=== PATIENT | male | born 1955 | race African-American/Black ===

== ENCOUNTER 2021-05-30 02:05 | Inpatient (IN) | payer MEDICARE, MEDICAID ==
[~2021-05-30] VITALS: Ht 188 cm; Wt 77.2 kg
[2021-05-30] MEDS ORDERED: heparin 10,000 units/1 ML INJ IV PRN (02:25)
[2021-05-30] MEDS ORDERED: HYDR25TA4 PO (03:15)
[2021-05-30] MEDS ORDERED: HYDR25TA5 PO (03:15)
[2021-05-30] MEDS ORDERED: BISA5TAB10 PO (03:15)
[2021-05-30] MEDS ORDERED: CLON0.1T2 PO (03:15)
[2021-05-30] MEDS ORDERED: COLC0.6T72 PO (03:15)
[2021-05-30] MEDS ORDERED: AMLO10TA13 PO (03:15)
[2021-05-30] MEDS: heparin 25,000 UNIT/250ml bag 250 ML IV SCH ×2 (03:16→17:49)
[2021-05-30 03:18] LABS: PARTIAL THROMBOPLASTIN TIME 54 SECONDS (22-32)
--- NOTE | 2021-05-30 03:31 | NUR ---
lab called concerning pt's critical troponin of 390. dr weston is aware.
[2021-05-30] MEDS ORDERED: ondansetron/PF 4mg/2ml inj IV PRN (03:35)
[2021-05-30] MEDS ORDERED: magnesium hydroxide 30ml (MOM) UD suspension PO PRN (03:35)
[2021-05-30] MEDS ORDERED: acetaminophen 325mg tablet PO PRN (03:35)
[2021-05-30] MEDS ORDERED: mag hydrox/Alum hydrox/simeth 30ml oral suspension PO PRN (03:35)
[2021-05-30] MEDS ORDERED: potassium Cl 40MEQ/1/2NS 520ml 520 ML IV PRN ×2 (03:35)
[2021-05-30] MEDS ORDERED: potassium Cl 20 mEq SR tablet PO PRN ×2 (03:35)
[2021-05-30 03:38] LABS: ALBUMIN 3.2 G/DL (3.4-5.0); ANION GAP 12 (8-16); BLOOD UREA NITROGEN 13 MG/DL (7-18); BUN/CREATININE RATIO 10.3 (5.4-32.0); CALCIUM 7.6 MG/DL (8.5-10.1); CHLORIDE 103 MMOL/L (99-107); CREATININE 1.26 MG/DL (0.60-1.10); GLUCOSE 94 MG/DL (70-104); POTASSIUM 3.4 MMOL/L (3.5-5.1); SODIUM 141 MMOL/L (135-145); TOTAL CARBON DIOXIDE 25.6 MMOL/L (24-32); eGFR 57 ML/MIN
[2021-05-30 04:09] LABS: HEMOGLOBIN A1C 5.3 % (4.5-6.2)
[2021-05-30] MEDS: normal saline 1000ml 1,000 ML IV SCH (06:51)
[2021-05-30] MEDS ORDERED: PERFLUTREN PROTEIN-A MICROSPHR (Optison) 0.22 MG/ML 3ML VIAL IV ONE (08:00)
[2021-05-30] MEDS: K and/or MAG REPLACEMENT MC SCH ×2 (08:00→20:00)
[2021-05-30] MEDS: docusate sod 100mg capsule PO SCH ×2 (08:45→20:00)
[2021-05-30] MEDS: aspirin 325mg tablet, delayed-release (Ecotrin) PO SCH (08:45)
[2021-05-30] MEDS: atorvastatin 20mg tablet PO SCH (08:45)
[2021-05-30] MEDS: metoprolol tartrate 25mg tablet PO SCH ×2 (08:45→21:08)
[2021-05-30] MEDS: amLODIPine 5mg tablet PO SCH (08:45)
[2021-05-30 10:07] LABS: PARTIAL THROMBOPLASTIN TIME 40 SECONDS (22-32)
[2021-05-30 19:00] VITALS: BP 143/81
--- NOTE | 2021-05-30 20:06 | NUR ---
Patient in room ED 11. I have received report from Abilio NAVARRETE and had the opportunity to ask questions and assume patient care.
[2021-05-30 22:00] VITALS: BP 172/93
--- NOTE | 2021-05-30 22:02 | NUR ---
critical trop called to md Pena-trop level trending down. no new orders per MD. BRINA NAVARRETE
[2021-05-31] VITALS (14 sets, daily range): BP systolic 117–152; BP diastolic 64–85
[2021-05-31 02:14] LABS: ALANINE AMINOTRANSFERASE 47 U/L (12-78); ALBUMIN 2.9 G/DL (3.4-5.0); ALBUMIN/GLOBULIN RATIO 0.9 (1.1-1.5); ALKALINE PHOSPHATASE 69 IU/L (46-116); ANION GAP 10 (8-16); ASPARTATE AMINO TRANSFERASE 80 U/L (10-37); BILIRUBIN,TOTAL 0.5 MG/DL (0.1-1.0); BLOOD UREA NITROGEN 15 MG/DL (7-18); BUN/CREATININE RATIO 13.3 (5.4-32.0); CALCIUM 7.6 MG/DL (8.5-10.1); CHLORIDE 104 MMOL/L (99-107); CHOL/HDL RATIO 2.2 (0.00-4.99); CHOLESTEROL 145 MG/DL (0-200); CREATININE 1.13 MG/DL (0.60-1.10); GLUCOSE 85 MG/DL (70-104); HDL CHOLESTEROL 65 MG/DL (35-60); LDL CHOLESTEROL 60 MG/DL (50-100); POTASSIUM 3.6 MMOL/L (3.5-5.1); SODIUM 138 MMOL/L (135-145); TOTAL CARBON DIOXIDE 24.2 MMOL/L (24-32); TOTAL PROTEIN 6.3 G/DL (6.4-8.2); TRIGLYCERIDES 77 MG/DL (20-135); eGFR 79 ML/MIN
--- NOTE | 2021-05-31 06:02 | NUR ---
Problems reprioritized. Patient report given, questions answered & plan of care reviewed with Jakob.
--- NOTE | 2021-05-31 06:15 | NUR ---
Patient in room PCU 3018. I have received report from Peri NAVARRETE and had the opportunity to ask questions and assume patient care.
[2021-05-31 06:53] LABS: BASOPHILS # (AUTO) 0.1 X10'3 (0-0.2); EOSINOPHILS # (AUTO) 0.2 X10'3 (0-0.9); LYMPHOCYTES # (AUTO) 3.3 X10'3 (1.1-4.8); MONOCYTES # (AUTO) 0.8 X10'3 (0-0.9); NEUTROPHILS # (AUTO) 2.6 X10'3 (1.8-7.7); WHITE BLOOD COUNT 6.9 X10'3 (4.5-11.0)
[2021-05-31 06:55] LABS: BASOPHILS % (AUTO) 0.8 % (0-1); EOSINOPHILS % (AUTO) 3.1 % (0-6); HEMATOCRIT 42.3 % (42.0-52.0); HEMOGLOBIN 14.7 g/dl (14.0-17.9); LYMPHOCYTES % (AUTO) 47.8 % (21-51); MEAN CORPUSCULAR HEMOGLOBIN 35.3 PG (27.0-31.0); MEAN CORPUSCULAR HGB CONC 34.7 g/dL (33.0-36.5); MEAN CORPUSCULAR VOLUME 101.6 FL (78-98); MONOCYTES % (AUTO) 11.1 % (2-12); NEUTROPHILS % (AUTO) 37.2 % (42-75); PLATELET COUNT 197 X10'3 (140-440); RED BLOOD COUNT 4.17 X10'6 (4.70-6.10); RED CELL DISTRIBUTION WIDTH 16.3 % (11.5-14.5)
[2021-05-31] MEDS: aspirin 325mg tablet, delayed-release (Ecotrin) PO SCH (07:52)
[2021-05-31] MEDS: amLODIPine 5mg tablet PO SCH (07:52)
[2021-05-31] MEDS: metoprolol tartrate 25mg tablet PO SCH ×2 (07:53→20:52)
[2021-05-31] MEDS: atorvastatin 20mg tablet PO SCH (07:53)
[2021-05-31] MEDS: docusate sod 100mg capsule PO SCH ×2 (07:54→20:00)
[2021-05-31] MEDS: K and/or MAG REPLACEMENT MC SCH ×2 (08:00→20:00)
[2021-05-31] MEDS ORDERED: regadenoson 0.4mg/5ml syringe IV ONE (08:30)
[2021-05-31] MEDS ORDERED: metoprolol tartrate 1mg/ml inj IV PRN (08:30)
[2021-05-31] MEDS ORDERED: nitroGLYCERIN 0.4mg SUBLingual tab SL PRN (08:30)
[2021-05-31] MEDS ORDERED: aminophylline 250mg/10ml inj. IV PRN (08:30)
--- NOTE | 2021-05-31 09:50 | NUR ---
Noted pt on a CHO controlled diet with A1c 5.3% and no PMH DM. BG levels 85-94 mg/dL since admit. CHO controlled diet is not indicated. Of note lipid panel is WNL, heart healthy diet also not indicated. TC to RN with recommendation for diet advancement to regular. Will continue to follow. Addendum: 05/31/21 at [address] Amended: Links added.
--- NOTE | 2021-05-31 13:19 | NUR ---
PAGER ID: [phone] MESSAGE: Re: McNeal. Hannah. Room: 301. Pt's barbara scan has resulted. -[facility] #[id number] -Dr Rutledge notified of Barbara scan
--- NOTE | 2021-05-31 14:03 | NUR ---
PAGER ID: [phone] MESSAGE: Re: Camden Lakhani. Room: 301. Pt does not have a ride home today. Lives [place]. will pickle solution maker early tomorrow morning. Can I DC heparin drip? -[facility] #[id number] -Dr. Rutledge paged.
[2021-05-31] MEDS ORDERED: iohexol 350MG/ML 100ml bottle IV ONE (14:19)
--- NOTE | 2021-05-31 14:53 | NUR ---
Patient in room PCU 3018. I have received report from Jakob NAVARRETE and had the opportunity to ask questions and assume patient care.
--- NOTE | 2021-05-31 16:34 | NUR ---
PAGER ID: [phone] MESSAGE: Re: Camden Lakhani. Room: 301. Pt's CTA was negative for PE. Can we DC heparin drip? -[facility] #[id number] -Dr. Rutledge paged concerning Pt's CTA results
--- NOTE | 2021-05-31 17:43 | NUR ---
PAGER ID: [phone] MESSAGE: Re: Vamsi Lakhani. Room: [facility]. Is Pt good to be Discharged in the morning? -[facility] #[id number] -Dr. Rutledge paged concerning DC orders
--- NOTE | 2021-05-31 17:52 | NUR ---
Spoke with Dr. Rutledge concerning Pt's Heparin drip and received orders to DC it.
--- NOTE | 2021-05-31 17:55 | NUR ---
Paged Dr. Rutledge PAGER ID: [phone] MESSAGE: Re: Vamsi Daigle RM 0111S. Pt is having a headache and asking PRN for Tylenol. NO prn at this time Please advise. Shakila NAVARRETE [id number] Addendum: 05/31/21 at 1800 by Shakila Baldwin RN Dr. Rutledge responded to a one time order for Tylenol 650, for pain. Continue to monitor.
[2021-05-31] MEDS ORDERED: acetaminophen 325mg tablet PO PRN (18:00)
--- NOTE | 2021-05-31 18:43 | NUR ---
Problems reprioritized. Patient report given, questions answered & plan of care reviewed with Connie NAVARRETE.
--- NOTE | 2021-06-01 00:30 | NUR ---
reviewed and edited SRN assessment.
--- NOTE | 2021-06-01 03:19 | NUR ---
Patient refused 0200 vitals.
[2021-06-01] MEDS: normal saline 1000ml 1,000 ML IV SCH (03:35)
--- NOTE | 2021-06-01 06:10 | NUR ---
Problems reprioritized. Patient report given, questions answered & plan of care reviewed with Chapis.
--- NOTE | 2021-06-01 06:30 | NUR ---
Patient in room PCU 3018. I have received report from Connie NAVARRETE and had the opportunity to ask questions and assume patient care. Patient resting in bed in no acute distress.
[2021-06-01 07:00] VITALS: BP 154/91
[2021-06-01 07:29] LABS: EOSINOPHILS # (AUTO) 0.2 X10'3 (0-0.9); HEMOGLOBIN 14.9 g/dl (14.0-17.9); MEAN PLATELET VOLUME 8.9 FL (7.4-10.4); MONOCYTES # (AUTO) 0.9 X10'3 (0-0.9); MONOCYTES % (AUTO) 14.7 % (2-12); NEUTROPHILS # (AUTO) 2.4 X10'3 (1.8-7.7)
[2021-06-01 07:35] LABS: BASOPHILS % (AUTO) 0.8 % (0-1); EOSINOPHILS % (AUTO) 2.6 % (0-6); HEMATOCRIT 42.8 % (42.0-52.0); LYMPHOCYTES # (AUTO) 2.6 X10'3 (1.1-4.8); LYMPHOCYTES % (AUTO) 42.4 % (21-51); MEAN CORPUSCULAR HEMOGLOBIN 35.6 PG (27.0-31.0); MEAN CORPUSCULAR HGB CONC 34.9 g/dL (33.0-36.5); NEUTROPHILS % (AUTO) 39.5 % (42-75); PLATELET COUNT 203 X10'3 (140-440); RED CELL DISTRIBUTION WIDTH 16.4 % (11.5-14.5); WHITE BLOOD COUNT 6.1 X10'3 (4.5-11.0)
[2021-06-01 07:43] LABS: ALANINE AMINOTRANSFERASE 47 U/L (12-78); ALBUMIN/GLOBULIN RATIO 0.9 (1.1-1.5); ALKALINE PHOSPHATASE 68 IU/L (46-116); ANION GAP 7 (8-16); ASPARTATE AMINO TRANSFERASE 52 U/L (10-37); BILIRUBIN,TOTAL 0.5 MG/DL (0.1-1.0); BLOOD UREA NITROGEN 11 MG/DL (7-18); BUN/CREATININE RATIO 10.4 (5.4-32.0); CALCIUM 8.5 MG/DL (8.5-10.1); CHLORIDE 107 MMOL/L (99-107); CREATININE 1.06 MG/DL (0.60-1.10); GLUCOSE 85 MG/DL (70-104); SODIUM 141 MMOL/L (135-145); TOTAL CARBON DIOXIDE 27.1 MMOL/L (24-32); TOTAL PROTEIN 6.4 G/DL (6.4-8.2); eGFR 85 ML/MIN
[2021-06-01] MEDS: docusate sod 100mg capsule PO SCH (10:16)
[2021-06-01] MEDS: aspirin 325mg tablet, delayed-release (Ecotrin) PO SCH (10:17)
[2021-06-01] MEDS: atorvastatin 20mg tablet PO SCH (10:17)
[2021-06-01] MEDS: metoprolol tartrate 25mg tablet PO SCH (10:17)
[2021-06-01 10:18] VITALS: BP_SYST 164
[2021-06-01] MEDS: amLODIPine 5mg tablet PO SCH (10:18)
--- NOTE | 2021-06-01 10:26 | NUR ---
Page Sent promotional table spacer PAGER ID: [phone] MESSAGE: [id number] [place]. Pt says he is supposed to be DC to home today and has ride coming. He says he is leaving when his ride gets here. Is
[2021-06-01] MEDS ORDERED: ATOR20TA PO (10:49)
[2021-06-01] MEDS ORDERED: ASPI-1094 PO (10:49)
[2021-06-01] MEDS ORDERED: LOP12.5T PO (10:49)
--- NOTE | 2021-06-01 11:00 | NUR ---
Patient DC to home @ 1055 and was picked up by a friend. PIV was removed with cannula intact. Orthostatics were negative this am. RX were escripted to [facility] in [place]. DC instructions and warning s/s were reviewed with the patient and he verbalized understanding. Patient alert, appropriate, and oriented at time of DC. Pt declined DC photos of wounds stating he did not want to make his ride wait and they have a long drive home.
== END 2021-06-01 10:53 | disposition home or self-care (01) | DRG 682 ==
LOC: ER 02:06 → ED HOLD 03:40 → PCU 3S 20:25
PROVIDERS: ADMIT Internal Medicine; ATTEND Internal Medicine
PROC: 4A02XM4 Measurement of Cardiac Total Activity, External Approach (ICD-10-PCS; principal; 2021-05-31)
PROC: 3E073KZ Introduction of Other Diagnostic Substance into Coronary Artery, Percutaneous Approach (ICD-10-PCS; 2021-05-31)
PROC: B32T1ZZ Computerized Tomography (CT Scan) of Left Pulmonary Artery using Low Osmolar Contrast (ICD-10-PCS; 2021-05-31)
PROC: B3201ZZ Computerized Tomography (CT Scan) of Thoracic Aorta using Low Osmolar Contrast (ICD-10-PCS; 2021-05-31)
PROC: B32S1ZZ Computerized Tomography (CT Scan) of Right Pulmonary Artery using Low Osmolar Contrast (ICD-10-PCS; 2021-05-31)
DX: N17.9 Acute kidney failure, unspecified (principal); I21.4 Non-ST elevation (NSTEMI) myocardial infarction; I10 Essential (primary) hypertension; F17.210 Nicotine dependence, cigarettes, uncomplicated; E86.0 Dehydration; Z60.2 Problems related to living alone; M48.061 Spinal stenosis, lumbar region without neurogenic claudication; R79.89 Other specified abnormal findings of blood chemistry; R91.1 Solitary pulmonary nodule; R55 Syncope and collapse; Z79.82 Long term (current) use of aspirin; Z79.899 Other long term (current) drug therapy; Z88.8 Allergy status to other drugs, medicaments and biological substances; Z71.6 Tobacco abuse counseling
CPT/HCPCS: 36415; 71275; 78452; 80048; 80053; 80061; 83036; 84484; 85025; 85730; 87081; 93005; 93017; 93306; 99285; A9500; G0378; J1644; J2785; J7030; Q9967